=== PATIENT | female | born 1995 ===

== ENCOUNTER 2024-10-20 17:06 | Emergency (ER) | payer MEDICAID, SELFPAY ==
--- NOTE | 2024-10-20 17:50 | ED.URI ---
HPI - URI/Sore Throat General Chief Complaint: General Medical Stated Complaint: SORE THROAT; PAIN Time Seen by Provider: 10/20/24 20:10 Source: patient, RN notes reviewed and old records reviewed Mode of arrival: ambulatory History of Present Illness ED Provider: Cielo Hoyt PA-C [facility] Narrative: 29-year-old female no significant past medical history presenting to the ED complaining of sore throat since yesterday, worsening today with associated hot flashes and chills. Reports painful swallowing. Denies difficulty or inability to swallow, cough, ear pain, sick contacts, travel. Admits took Tylenol and ibuprofen around 1300 today Related Data Previous Rx's ?Medication ?Instructions ?Recorded penicillin V potassium 500 mg 500 mg PO BID 10 days #20 tabs 10/20/24 tablet Allergies Allergy/AdvReac Type Severity Reaction Status Date / Time No Known Allergies Allergy Verified 10/20/24 17:53 Review of Systems Review of Systems: Yes all other systems are reviewed and are negative Constitutional: Constitutional: Reports as per [facility] Past Medical History Attestation statement: The following information was validated with the patient. Source: old records reviewed Social History Social History Do you have a plan to hurt others: No Plan Physical Exam Vital Signs: Vital Signs: Last Vital Signs Temp 101.3 F H 10/20/24 17:51 Pulse 86 10/20/24 17:51 Resp 16 10/20/24 17:51 BP 137/88 10/20/24 17:51 Pulse Ox 98 10/20/24 17:51 O2 Del Method Room Air 10/20/24 17:51 BMI result Body Mass Index 31.3 Const: General: cooperative, healthy appearing and no acute distress Orientation/consciousness: patient oriented x3 Limitations: no limitations HEENT: Head: Yes normal to inspection and Yes atraumatic Ears: hearing grossly normal bilaterally and external ears normal General nose exam: Normal external nose present Face and sinus: Yes normal facial exam Mouth: no drooling Throat: Yes uvula midline, Yes abnormal tonsil (+ erythematous, swollen with exudates), No peritonsillar mass, Yes posterior oropharynx abnormal (Erythematous), No uvula laterally displaced and No uvular edema Eyes: General: appearance normal, both eyes and all related structures EOM: EOMs intact bilaterally Neck: Neck: Yes normal visual inspection and Yes no meningeal signs Resp: Effort & Inspection: normal respiratory effort, no respiratory distress and no stridor Auscultation: clear to auscultation bilaterally Cardio: Rate: regular rate Heart sounds: S1 normal heart sound present and S2 normal heart sound present Skin: Rashes: no rashes Wounds: no wounds Neuro: General: patient oriented x3, tone normal and no meningeal signs Cranial nerves: Yes CN's II-XII intact bilaterally Gait exam (Neuro): Normal gait present Extrem: General: Yes normal to inspection Course Course Course Narrative: This is a Rapid Medical Exam performed in triage by Cielo Hoyt PA-C. Full HPI, ROS and PE to be performed by primary ED provider. 29yo F presenting to the ED c/o sore throat x yesterday, worse today. +hot/cold flashes. +painful swallowing. denies cough. admits took Tylenol & Motrin around 1300 today PE: +posterior oropharyngeal erythema, +tonsilar swelling & exudates. uvula midline Plan: SARs, rapid strep -rapid strep positive -COVID/flu/RSV negative > fever improved after PO Tylenol given. Results discussed with patient including worrisome signs and symptoms and strict return precautions, and when to return to the emergency department. They verbalized understanding and feel safe for discharge at this time. Medications Administered Discontinued Medications Generic Name Dose Route Start Last Admin Trade Name Freq PRN Reason Stop Dose Admin Acetaminophen 325 mg 10/20/24 17:52 10/20/24 17:54 Acetaminophen 325 Mg Tablet PO 10/20/24 17:53 325 mg ONCE ONE Administration Medical Decision Making Medical Decision Making [facility] Narrative: 29-year-old female no significant past medical history presenting to the ED complaining of sore throat since yesterday, worsening today with associated hot flashes and chills. On exam febrile to 101.3 orally, NAD, nontoxic appearing, physical exam as noted above concerning for strep pharyngitis. No evidence of [employer]/retropharyngeal abscess. Plan: Viral testing, rapid strep, antipyretic, re-evaluate Please refer to course for remaining clinical decision making, interpretation of labs/imaging results, and discussions with consultants and/or family members. Differential Diagnosis Differential Diagnoses: The differential diagnosis associated with the presentation includes As above Lab Data [facility] Lab Attestation statement: I reviewed the patient's lab results. Labs: Lab Results 10/20/24 Range/Units 19:21 Influenza Type A (PCR) NEGATIVE (Negative) Influenza Type B (PCR) NEGATIVE (Negative) RSV RNA Qual (PCR) NEGATIVE (Negative) SARS-CoV-2 RNA (RT-PCR) NEGATIVE (Negative) S. pyogenes GrpA ANETA Positive A (Negative) External Record Review External record reviewed: Inpatient record, Office record, Outpatient record, Prior outpatient labs, Prior outpatient radiology, Primary care record and Outside ED record Tests considered The following testing was considered but not selected: As above Prescription Management I considered prescription management with: Pain Medication and Antibiotic Chronic Conditions Patient?s care impacted by: Other Discharge Plan Discharge Clinical Impression: Acute streptococcal pharyngitis Patient Disposition: Home, Self-Care Instructions: Strep Throat (DC) Additional Instructions: You have strep throat. Penicillin V as an antibiotic please take as prescribed In addition take Tylenol and ibuprofen for pain and fever You tested negative for COVID, flu, RSV Gargle with warm saltwater If her symptoms persist or worsen, you have difficulty or inability to swallow or fever unresolved with medications return to the ED Prescriptions: New penicillin V potassium 500 mg tablet 500 mg PO BID 10 Days Qty: 20 0RF Referrals: Physician,Unknown J [Primary Care Provider] - 3 days Stand Alone Forms: Work/School Release
[2024-10-20 17:51] VITALS: BP 137/88; PULSE 86; RESP 16; TEMP 38.5; O2SAT 98; BMI 31.3
[2024-10-20] MEDS: Acetaminophen 325 MG TABLET PO (17:54)
[2024-10-20 19:30] LABS: IDNOW Serial# 9DB6401D; Strep A Nucleic Acid Positive (Negative)
[2024-10-20 20:04] LABS: Influenza A PCR NEGATIVE (Negative); Influenza B PCR NEGATIVE (Negative); Resp Syncy Virus RNA Qual PCR NEGATIVE (Negative); SARS COV2 PCR INHOUSE NEGATIVE (Negative)
[2024-10-20 20:30] VITALS: BP 121/78; PULSE 73; RESP 18; TEMP 37.2; O2SAT 99
== END 2024-10-20 20:31 | disposition home or self-care (01) ==
PROVIDERS: Physician Assistant; Emergency Provider Emergency Medicine
DX: J02.0 Streptococcal pharyngitis (principal)
CPT/HCPCS: 0241U; 87651; 99283